=== PATIENT | female | born 2000 | race Two or more races ===

== ENCOUNTER 2024-10-29 09:12 | Observation (INO) | payer MEDICAID, SELFPAY ==
[2024-10-29 09:28] VITALS: BMI 28.0
[2024-10-29 09:40] VITALS: RESP 19; TEMP 36.8
[2024-10-29 09:44] VITALS: BP 135/98; BP 137/99; PULSE 88; PULSE 90
[2024-10-29 09:49] VITALS: BP 132/99; PULSE 93
[2024-10-29 10:15] VITALS: BP 129/93; PULSE 94
== END 2024-10-29 10:52 | disposition home or self-care (01) ==
LOC: S4SX 11-02 13:52
PROVIDERS: Admitting Provider Obstetrics & Gynecology; PCP Family Medicine; Visit Provider Obstetrics & Gynecology
DX: Z34.90 Encounter for supervision of normal pregnancy, unspecified, unspecified trimester (principal); Z3A.00 Weeks of gestation of pregnancy not specified
CPT/HCPCS: 59025; 59899; 85025; 86780; 86850; 86900; 86901; G0378

== ENCOUNTER 2024-10-30 21:01 | Inpatient (IN) | payer MEDICAID, SELFPAY ==
[2024-10-30 21:19] VITALS: BP 132/89; PULSE 131; RESP 18; TEMP 37.6
[2024-10-30 21:37] VITALS: BP 132/89; TEMP 37.6
[2024-10-30 21:47] VITALS: BP 137/90; PULSE 115
--- NOTE | 2024-10-30 22:05 | ESHP_ITS ---
Documentation for date of: 10/30/24 OB Labor/Induct. HPI History of Present Illness : 2 Para: 1 Term pregnancies: 1 pregnancies: 0 Living children: 1 History of Abortions: Spontaneous and Elective: 0 History of Vaginal deliveries: 1 History of sections: No History of : No NEFTALY: 10/24/24 Gestational Age (weeks): 40 Gestational Age (days): 6 Indication for induction: post dates History of present illness: Patient is a 24-year-old -0-0-1 presents for a scheduled induction of labor for postdates she is 40-6/7 weeks today presentation she denies vaginal bleeding loss of fluid she reports good movement and she reports some crampy irregular contractions she is interested in epidural 1 at this time. History of Present Adequate Care: Yes Ultrasounds: normal 1st trimester US and normal mid trimester US Obstetrical complications: preeclampsia (Patient has a history of preeclampsia with last ) Labs Maternal Blood Type: O Pos Labs: Positive: Rubella Titre and Negative: RPR, Hepatitis B, HIV, Chlamydia, Gonorrhea and Group Beta Strep Review of Systems Constitutional Constitutional: Reports system reviewed and no additional complaints, except as documented Comments: No strong contractions no loss of fluids no heavy vaginal bleeding. Past Medical History Surgical History SURGICAL: Negative Section Meds Home Medications and Allergies Home Medications ?Medication ?Instructions ?Recorded ?Confirmed ?Type aspirin 81 mg chewable tablet 81 mg PO 10/29/24 Histo ry vits no.126-ferrous fum tab 10/29/24 History 28 mg iron-folic acid 800 mcg tablet (Classic ) Allergies Allergy/AdvReac Type Severity Reaction Status Date / Time NKA* Allergy Uncoded 10/30/24 22:07 OB Exam Physical Exam Vital signs: Temp BP 99.6 F 132/89 H 10/30/24 21:37 10/30/24 21:37 Routine Abdominal Exam Abdominal: Present soft and normoactive bowel sounds Comments: EFW approximately 8 pounds by Sanchez Detailed Labor and Delivery Exam Effacement (%): Thick station: -3 Consistency: firm Presentation: Vertex (Vertex on ultrasound at bedside) Membranes: intact monitor accelerations: 15x15 monitor decelerations: None MCC variability: Moderate (11-25) Contraction frequency (min): Irregular Contraction duration (sec): 30 seconds Contraction intensity: Mild OB Results Labs 10/30/24 21:21 OB Assessment & Plan Assessment and Plan (1) Encounter for induction of labor: Status: Acute (2) Gestational hypertension: Status: Acute (3) Post-dates : Status: Acute Additional Plan Induction method: per misoprostol protocol Plan: induction and anticipate NVD Additional Plan Comment: Patient desires epidural (2) Gestational hypertension Qualifiers: Trimester: third trimester Qualified Code(s): O13.3 - Gestational [- induced] hypertension without significant proteinuria, third trimester (3) Post-dates Qualifiers: Post-term type: 40-42 weeks gestation Qualified Code(s): O48.0 - Post-term
[2024-10-30 22:10] LABS: Basophils # (Auto) 0.1 Thou/mm3 (0.0-0.2); Basophils % (Auto) 1 % (0-2.5); Eosinophils # (Auto) 0.1 Thou/mm3 (0.0-0.5); Eosinophils % (Auto) 1 % (0-10); Hematocrit 34.6 % (36.0-46.0); Hemoglobin 11.9 g/dL (12.0-16.0); Immature Granulocytes % (Auto) 0 % (0-0); Immature Granulocytes Auto 0.04 Thou/mm3 (0.00-0.00); Lymphocytes # (Auto) 0.8 Thou/mm3 (1.0-4.8); Lymphocytes % (Auto) 9 % (10-50); Mean Corpuscular HGB Conc 34.4 g/dl (31.0-37.0); Mean Corpuscular Hemoglobin 30.1 pg (25.0-35.0); Mean Corpuscular Volume 87 fL (80-100); Monocytes # (Auto) 0.9 Thou/mm3 (0.0-0.8); Monocytes % (Auto) 9 % (0-12); Neutrophils # (Auto) 7.8 Thou/mm3 (1.8-7.7); Neutrophils % (Auto) 81 % (37-80); Nucleated Red Blood Cell % 0 /100 WBC (0); Platelet Count 286 Thou/mm3 (140-440); RDW Standard Deviation 44.3 fL (36.4-46.3); Red Blood Count 3.96 Miln/mm3 (4.00-5.20); White Blood Count 9.7 Thou/mm3 (3.6-11.0)
[2024-10-30] MEDS: MISOPROSTOL 50 mCg TABLET PO (22:14)
[2024-10-30 23:01] VITALS: BP 126/81; PULSE 104
[2024-10-30 23:16] LABS: Syphilis Nonreactive (Nonreactive)
[2024-10-31] VITALS (198 sets, daily range): BP systolic 0–202; BP diastolic 0–140; PULSE 76–206; RESP 14–20; TEMP 36.8–39.4; O2SAT 78–100; BMI 27.9
[2024-10-31] MEDS: ACETAMINOPHEN 500 MG TABLET 1000 MG PO ×3 (00:37→14:47)
[2024-10-31] MEDS: MISOPROSTOL 50 mCg TABLET PO ×2 (02:22→06:44)
--- NOTE | 2024-10-31 06:41 | PD.LDPN ---
Documentation for date of: 10/31/24 OB Labor Progress Note Pain Control Pain control: tolerating well Pelvic Exam Dilation (cm): 2-3 Effacement (%): 80 station: -2 Amniotic membrane status: Intact Comments: Cervix is off to patient's right side Contractions Monitor mode: External Contraction frequency: Irregular Contraction intensity: Mild Status status: Category l Assessment and Plan Assessment: induction ongoing Plan OB labor note: continuous present management Comments: Patient has had Cytotec buccal twice 50ug each. Plan to give 1 more dose of 50 ug buccal Cytotec. Give patient breakfast. In 4 hours consider AROM and Pitocin if needed. Patient is interested in epidural when she is in active labor.
[2024-10-31] MEDS: RINGERS LACTATED 1000 ML 1,000 ML 100 ML IV ×2 (08:31→12:00)
[2024-10-31 08:48] LABS: Influenza A Ag Positive; Influenza B Ag Negative
--- NOTE | 2024-10-31 09:37 | PD.LDPN ---
Documentation for date of: 10/31/24 OB Labor Progress Note Pelvic Exam Dilation (cm): 2-3 Effacement (%): 80 station: -2 Amniotic membrane status: Intact Contractions Monitor mode: External Contraction frequency: Irregular Contraction intensity: Mild Status status: Category l Assessment and Plan Comments: I assumed care of Ghada at 0700 this morning. In brief, she is a 24yo with SIUP at 41w0d undergoing IOL for LTG. She has received 3 doses of oral cytotec and recent SCE 2-/-2. She has had a low grade fever and developed nasal congestion and sore throat so swab was performed and recently resulted POSITIVE FLU A. Will place on respiratory precautions. Cat I FHRT. Plan to continue cytotec to obtain adequate ctx pattern and then will proceed with pitocin +/- AROM Safe to proceed Nakia Henry MD
[2024-10-31] MEDS: OXYTOCIN in NS 20 units 20 UNIT/1,000 ML BAG 125 UNIT IV ×2 (14:03→15:36)
[2024-10-31] MEDS: METHYLERGONOVINE INJ 0.2 MG/ML VIAL IM (14:07)
[2024-10-31] MEDS: ONDANSETRON INJ 2 MG/ML INJ 2 ML 4 MG IV (14:28)
[2024-10-31] MEDS: TRANEXAMIC ACID 1,000 MG IVPB 1,000 MG/100 ML BAG 200 MG IV (14:30)
--- NOTE | 2024-10-31 14:47 | OBDSUM_ITS ---
Data ([facility]) Data Hx Section: No : 2 Para: 1 Term: 1 : 0 Livin : 0 Delivery Data ([facility]) Labor Data ROM Date: 10/31/24 ROM Time: 13:52 Rupture Type: AROM Amniotic Fluid: Thin Meconium Delivery Data Labor Onset Stage 1 Date: 10/31/24 Labor Onset Stage 1 Time: 10:22 Labor Onset Stage 2 Date: 10/31/24 Labor Onset Stage 2 Time: 13:30 Delivery Date: 10/31/24 Delivery Time: 13:57 Placenta Delivery Date: 10/31/24 Placenta Delivery Time: 14:03 Delivered by: Nakia Henry Delivery nurse: Domi Howe Other staff at delivery: 2nd Nurse Other staff at delivery: 2nd Nurse Other staff at delivery: Latosha Shah Other staff at delivery: Felicia Mendez Delivery Method Delivery: Vaginal Delivery Type: Spontaneous Anesthesia Type Primary Anesthesia: Epidural Placenta Cord Sample: Cord Blood Obtained EBL Estimated blood loss (ml): 1,350 Umbilical Cord Nuchal Cord: x1 Additional Procedures Patient is a 24yo [id number] s/p at 41&0wk after undergoing IOL for late term gestation, delivering at 1357 on 10/31/2024. She progressed with cytotec augmentation to C/C/+1 at which point she began pushing. RT present for known moderate meconium. She was able to receive an epidural. Flu A swab positive during labor course. With good maternal pushing efforts, infant's head delivered OA and restituted SHE. 1 loose nuchal cord reduced. Left anterior shoulder delivered easily followed by posterior shoulder and corpus. Infant had spontaneous cry and was vigorous. Apgars 8/9. Infant placed on maternal abdomen where nose/mouth were suctioned and dried/stimulated. After approximately 1 minute, cord was clamped x2 and cut by FOB. Cord blood collected for typing. With fundal massage and cord traction, placenta delivered spontaneously and intact with 3 vessel centrally inserted cord. Bimanual massage performed and IV pitocin given per protocol with fundus then firm at u-2cm but patient continued to have persistent bleeding, so 0.2mg IM methergine were given and 800mcg cytotec placed rectally (with over-glove that was then removed). Bimanual massage was continued and despite being firm, blood would continue to collect within the uterus forming clot that after each removal would result in continued bleeding. I requested TXA 1g IV be given and called for Bakri balloon. Bakri placed within the uterus, at 85cc NS filled the balloon well-filled the uterus. Patient immediately had emesis and balloon came out of the uterus. Fluid was removed from the balloon and re-inspection of the uterine cavity after another round of bimanual massage revealed that the cavity was much smaller and uterus overall more firm with no further significant bleeding. Inspection of perineum and vagina revealed one small left labial laceration which was repaired in routine fashion with 4-0 vicryl. Total re-approximation and hemostasis achieved. Blood was measured- QBL 1350ml. All counts correct x2. Mom and were doing well when I left the room. I was called back to the room while writing this note to evaluate bp's since persistent severe range bp's (patient shaking). I asked for mobile bp monitor to evaluate in case bp cuff was inaccurate and bp 150's/70's. Will continue to closely monitor, but no need for anti-HTN med at this time. Patient endorses now feeling lightheaded when previously did not. CBC being drawn. Will transfuse 1u pRBC, discussed transfusion with patient and she is accepting. Will re-check CBC after transfusion. Nakia Henry MD Complications Complications: hemorrhage Data ([facility]) [place] Data Infant Gender: Male Weight Grams: 3945 1 Minute Total: 8 5 Minute Total: 9
[2024-10-31] MEDS: MISOPROSTOL 200 mCg TABLET 800 MCG PR (14:50)
[2024-10-31] MEDS: BENZO/LANO/ALOE (Dermoplast) 60 GM CAN 1 SPRAY TOP ×2 (14:58→20:12)
[2024-10-31] MEDS: IBUPROFEN TAB 400 MG TABLET 800 MG PO (14:59)
[2024-10-31 15:35] LABS: Basophils % (Auto) 0 % (0-2.5); Eosinophils % (Auto) 0 % (0-10); Hematocrit 31.8 % (36.0-46.0); Hemoglobin 10.7 g/dL (12.0-16.0); Immature Granulocytes % (Auto) 1 % (0-0); Immature Granulocytes Auto 0.07 Thou/mm3 (0.00-0.00); Lymphocytes # (Auto) 1.2 Thou/mm3 (1.0-4.8); Lymphocytes % (Auto) 9 % (10-50); Mean Corpuscular HGB Conc 33.6 g/dl (31.0-37.0); Mean Corpuscular Volume 89 fL (80-100); Monocytes # (Auto) 1.1 Thou/mm3 (0.0-0.8); Monocytes % (Auto) 9 % (0-12); Neutrophils # (Auto) 10.6 Thou/mm3 (1.8-7.7); Neutrophils % (Auto) 81 % (37-80); Nucleated Red Blood Cell % 0 /100 WBC (0); Platelet Count 251 Thou/mm3 (140-440); RDW Standard Deviation 45.3 fL (36.4-46.3); Red Blood Count 3.57 Miln/mm3 (4.00-5.20)
[2024-10-31] MEDS: DOCUSATE SOD 100 MG CAPSULE PO (20:12)
[2024-11-01 00:46] LABS: Basophils # (Auto) 0.1 Thou/mm3 (0.0-0.2); Basophils % (Auto) 1 % (0-2.5); Eosinophils # (Auto) 0.1 Thou/mm3 (0.0-0.5); Eosinophils % (Auto) 1 % (0-10); Hematocrit 29.7 % (36.0-46.0); Hemoglobin 10.2 g/dL (12.0-16.0); Immature Granulocytes % (Auto) 0 % (0-0); Immature Granulocytes Auto 0.04 Thou/mm3 (0.00-0.00); Lymphocytes # (Auto) 1.2 Thou/mm3 (1.0-4.8); Lymphocytes % (Auto) 12 % (10-50); Mean Corpuscular HGB Conc 34.3 g/dl (31.0-37.0); Mean Corpuscular Hemoglobin 30.1 pg (25.0-35.0); Mean Corpuscular Volume 88 fL (80-100); Monocytes # (Auto) 0.7 Thou/mm3 (0.0-0.8); Monocytes % (Auto) 7 % (0-12); Neutrophils # (Auto) 8.1 Thou/mm3 (1.8-7.7); Neutrophils % (Auto) 80 % (37-80); Nucleated Red Blood Cell % 0 /100 WBC (0); Platelet Count 200 Thou/mm3 (140-440); Red Blood Count 3.39 Miln/mm3 (4.00-5.20); White Blood Count 10.2 Thou/mm3 (3.6-11.0)
[2024-11-01 04:00] VITALS: BP 122/79; PULSE 89; RESP 16; TEMP 36.7; O2SAT 97
[2024-11-01 08:00] VITALS: BP 125/84; PULSE 88; RESP 17; TEMP 36.6; O2SAT 98
[2024-11-01] MEDS: DOCUSATE SOD 100 MG CAPSULE PO (08:13)
--- NOTE | 2024-11-01 10:53 | PC.SS ---
Tong received a referral for patient having a history of depression, anxiety and anorexia. This is 24-year-old, single, female who presented to the hospital to deliver her son. Patient appeared alert and oriented to self, place and situation. Patient was pleasant, her mood and behavior were ordinary. Patient's thought process was logical and linear. Patient verified [facility] [address] [place]) and phone number. Patient resides at home with her parents, 2 younger siblings, and the father of her children, Shae Ibrahim (phone: [phone]), and their 3-year-old daughter. Patient works at [employer]. She receives WIC, disability, and foodstamps. Patient is independent with ADLs, no DME use. Patient denied any domestic violence, substance use, and child welfare services involvement. 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 She believes that her emotions were unstable due to being anxious about being a first-time mother. She denies receiving any outpatient mental health services. Patient denies any history of suicide attempts, 5150 holds. Patient denied any HI, SI. Patient reports feeling happy and excited to return home. Patient reports having all the equipment for the baby. Patient reported that her main support system is her boyfriend, and their parents. When medically clear, patient will return home with her partner and son. Patient declined any community resources.
--- NOTE | 2024-11-01 11:10 | ESDS_ITS ---
DS: Providers Provider Date of admission: 10/30/24 21:01 Primary care physician: Physician No Primary/Family Admitting Provider: Namita Higgins MD Attending Provider on Admission: Orin Shane MD Consults: 10/31/24 14:43 Referral Routine Comment: Attending Provider on DC: Nakia Henry MD Discharging Provider: Nakia Henry MD DS: Diagnosis Discharge Diagnosis (1) Post-dates : Status: Acute (2) Encounter for induction of labor: Status: Acute (3) hemorrhage: Status: Acute (4) Blood transfusion during current hospitalisation: Status: Acute (5) Influenza A: Status: Acute Problem List Completed Was Problem List Reviewed/Reconciled?: Yes Summary/Hosp Course Brief History: Patient is a 24-year-old -0-0-1 presents for a scheduled induction of labor for postdates she is 40-6/7 weeks today presentation she denies vaginal bleeding loss of fluid she reports good movement and she reports some crampy irregular contractions she is interested in epidural 1 at this time. She is doing well on PPD 1. Diagnosed with influenza A during labor, only symptom currently is nasal congestion. She received 1u pRBCs for 1350ml ebl at time of delivery related to uterine atony treated with uterotonics. Hgb initially 11.9 then 10.7 before transfusion and 10.2 after transfusion. She is ambulating without lightheadedness. She has had an otherwise uncomplicated course, meeting all milestones and feels ready for discharge home. She is tolerating regular diet no n/v, spontaneously voiding without issue. She has no chest pain or shortness of breath. No fevers or chills. Minimal, appropriate discomfort. Vitals normal, benign exam. Hemodynamically stable with no evidence of obstetric-related infection. Status at Discharge Functional status at discharge: independent ambulation Overall status at discharge: patient is back to baseline Time Spent with Patient Time attestation: Total time spent providing and/or coordinating discharge services: Exam Vital Signs Temp Pulse Resp BP Pulse Ox O2 Del Method 97.8 F 88 17 125/84 98 Room Air 11/01/24 08:00 11/01/24 08:00 11/01/24 08:00 11/01/24 08:00 11/01/24 08:00 11/01/24 08:00 Narrative Exam General: well developed, well nourished, no acute distress, conversant Cardiac: normal heart rate Lungs: breathing without distress Abdomen: soft, post-gravid, non-tender, no rebound or guarding, Fundus firm at u-3cm. Extremities: no pain with palpation of calves, trace edema of BLE Discharge Plan Plan Patient Disposition: HOME (Self Care) Patient condition on transfer: Stable Prescriptions/Referrals Prescriptions/Med Rec: New docusate sodium 100 mg Capsule 100 mg PO BID 10 Days Qty: 20 0RF ibuprofen 800 mg tablet 800 mg PO Q8H PRN (Reason: See Comments) 10 Days Qty: 30 0RF ferrous sulfate 325 mg (65 mg iron) tablet 325 mg PO QDAY Qty: 60 0RF oseltamivir [Tamiflu] 75 mg capsule 75 mg PO BID 5 Days Qty: 10 0RF Continued Classic 28 mg iron- 800 mcg tablet Discontinued aspirin 81 mg tablet,chewable 81 mg PO Referrals: No Primary/Family,Physician [Primary Care Provider] - Patient/Caregiver Discharge Instructions Discharge Activity: activity as tolerated and other Other Discharge Activity Instructions:: vaginal rest and no heavy lifting more than 10 pounds for 6 weeks. Other Discharge Diet Instructions: Regular Education Materials: After a Vaginal , The Flu (Influenza), Hemorrhage Print Language: Serbian Activity Restrictions/Additional Instructions: follow up for visit in 4 weeks, call clinic for appointment Stand Alone Forms: [facility] Award Info., Patient Portal Info Letter Discharge Order Discharge Orders: Discharge (Routine); Ordered 11/01/24 Ordered By: Nakia Henry Planned Discharge Date 11/01/24 (1) Post-dates Qualifiers: Post-term type: 40-42 weeks gestation Qualified Code(s): O48.0 - Post-term (3) hemorrhage Qualifiers: hemorrhage type: other immediate Qualified Code(s): O72.1 - Other immediate hemorrhage
[2024-11-01 11:30] VITALS: BP 130/85; PULSE 75; RESP 17; TEMP 36.8; O2SAT 98
== END 2024-11-01 15:18 | disposition home or self-care (01) | DRG 542 ==
LOC: S4SX 10-31 14:37 → S4NX 10-31 18:27
PROVIDERS: Obstetrics & Gynecology; Admitting Provider Obstetrics & Gynecology; Visit Provider Student in an Organized Health Care Education/Training Program
DX: O48.0 Post-term pregnancy (principal); Z37.0 Single live birth; Z3A.40 40 weeks gestation of pregnancy; O69.81X0 Labor and delivery complicated by cord around neck, without compression, not applicable or unspecified; O70.0 First degree perineal laceration during delivery; O13.4 Gestational [pregnancy-induced] hypertension without significant proteinuria, complicating childbirth; O77.0 Labor and delivery complicated by meconium in amniotic fluid; O99.52 Diseases of the respiratory system complicating childbirth; J10.1 Influenza due to other identified influenza virus with other respiratory manifestations; O72.1 Other immediate postpartum hemorrhage
CPT/HCPCS: 36415; 59409; 85025; 86780; 86850; 86900; 86901; 86923; 87502; 94762; J2210; J2405; J2590; J2795; J3490; J7120; P9016; S0191; A9270